=== PATIENT | male | born 1965 | race Hispanic/Latino ===

== ENCOUNTER 2019-01-29 11:18 | Day surgery (SDC) | payer MEDICAID ==
[2019-01-29] MEDS ORDERED: SUBLIMAZE ONE (11:49)
[2019-01-29] MEDS ORDERED: DIPRIVAN 10 MG/ML IV ONE (11:50)
[2019-01-29] MEDS ORDERED: NACL 0.9% 1000 ML 1,000 ML ONE ×2 (12:08→15:00)
[2019-01-29] MEDS ORDERED: NACL BACTERIOSTATIC INFILTRATI ONE (12:09)
--- NOTE | 2019-01-29 12:15 | Anesthesia Consultation ---
Anesthesia Consult and Med Hx Date of service: 01/29/19 - Airway Anesthetic Teeth Evaluation: Good ROM Head & Neck: Adequate Mental/Hyoid Distance: Adequate Mallampati Class: Class II Intubation Access Assessment: Probably Good - Pulmonary Exam CTA: Yes - Cardiac Exam Cardiac Exam: RRR - Pre-Operative Health Status ASA Pre-Surgery Classification: ASA3 Proposed Anesthetic Plan: General - Pulmonary Hx Smoking: Yes (STOPPED X 10 YRS) Hx Sleep Apnea: No ([facility] PRE SCREEN HIGH RISK) - Cardiovascular System Hx Hypertension: Yes (X 10 YRS) - Hematic Hx Anemia: Yes - Other Systems Hx Substance Use: Yes (METH- STOPPED X 1 YR) Hx Cancer: Yes ([place] -2007 , [place] = CHEMO) - Additional Comments Anesthesia Medical History Comments: 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
--- NOTE | 2019-01-29 12:15 | Anesthesia Day of Surgery ---
Anesthesia Day of Surgery - Day of Surgery Patient Examined: Yes Patient H&P Reviewed: Yes Patient is NPO: Yes
--- NOTE | 2019-01-29 12:24 | XRay Report ---
AP ABDOMEN: HISTORY: Kidney stone. There is moderate stool throughout the colon and rectum. The abdominal gas pattern is unremarkable. No masses or organomegaly is identified and there is no gross evidence of free air or fluid. No significant soft tissue calcifications are noted. IMPRESSION: Fecal retention.
[2019-01-29] MEDS ORDERED: PEPCID PO NR (13:00)
[2019-01-29] MEDS ORDERED: VERSED IV NR (13:00)
[2019-01-29] MEDS ORDERED: NACL 0.9% 1000 ML 1,000 ML IV SCH (13:00)
[2019-01-29] MEDS ORDERED: ANCEF/STERILE WATER 2 GM/20 ML IV NR (13:00)
[2019-01-29 13:02] LABS: Hematocrit 33.8 % (35.5-45.6); Hemoglobin 11.7 gm/dl (11.8-15.2); Mean Corpuscular HGB Conc 35 % (32-34); Mean Corpuscular Volume 104 fl (84-94); Platelet Count 144 K/mm3 (140-440); Red Blood Count 3.26 M/mm3 (3.65-5.03); Red Cell Distribution Width 13.7 % (13.2-15.2)
[2019-01-29 13:56] LABS: Platelet Estimate Consistent w Auto; RBC Morphology Normal; Total Cells Counted 100
[2019-01-29] MEDS ORDERED: OMNIPAQUE 300 MG/50 ML (CATH LAB) IV ONE (14:15)
[2019-01-29] MEDS ORDERED: DECADRON ONE (15:00)
[2019-01-29] MEDS ORDERED: ZOFRAN ONE (15:00)
[2019-01-29] MEDS ORDERED: XYLOCAINE MPF 2% ONE (15:00)
[2019-01-29] MEDS ORDERED: LASIX ONE (15:07)
--- NOTE | 2019-01-29 15:08 | Post Operative Note ---
Date of procedure: 01/29/19 Pre-op diagnosis: r ureteral stone Post-op diagnosis: same Findings: as above Procedure: R eswl Anesthesia: VISHAL Surgeon: MADHAVI WONG Estimated blood loss: none Pathology: none Condition: stable Disposition: PACU
--- NOTE | 2019-01-29 15:09 | Discharge Summary ---
Short Stay Discharge Plan Activity: other (no straining ) Weight Bearing Status: Full Weight Bearing Diet: low fat, low cholesterol, low salt Special Instructions: other (inc fluids ) Durable Medical Equipment Needed Upon Discharge: other (give strainer ) Follow up with: DR LUDA [Other] - 7 Days MADHAVI WONG MD [Staff Physician] - 7 Days
--- NOTE | 2019-01-29 15:33 | Operative Report ---
PREOPERATIVE DIAGNOSES: Right upper ureteral stone 6 mm, mild to moderate obstruction. POSTOPERATIVE DIAGNOSES: Right upper ureteral stone 6 mm, mild to moderate obstruction with history of HIV and HIV medications. PROCEDURE: Right in situ lithotripsy with injection of 75-80 mL of IV contrast. SURGEON: Laz Menendez MD ANESTHESIA: General. FINDINGS: This is a gentleman with intermittent pain. He does no longer hurt. CT showed the stone in the upper ureter, right below the UPJ. We could not see well on the cattle dipper film. He now presents for treatment. The plan will be IV dye, possible cystoscopy if needed. DESCRIPTION OF PROCEDURE: The patient was brought to the operating room and placed on the operating table. Following induction of anesthesia, placed over the right kidney and stone was difficult to localize. He was given approximately 75-80 mL of contrast and there was a delayed function on the right side. Within 25-30 minutes, we saw excellent contrast and colonization down to the stone. Once we started shocking from 1 kV, we did a renal pause just because we might have been going across the lower pole. We went to 7 kV and we saw excellent drainage of the system. It looks like it fragmented. The patient understands that he needs close followup. If there is a fragment to gets obstructed, he will need a ureteroscopy, laser as needed or even a percutaneous nephrostomy. The patient tolerated the procedure well and brought to recovery in stable condition. JOB# [id number] MARIA E/EDDIE
[2019-01-29 15:58] VITALS: BP 114/59
--- NOTE | 2019-01-30 08:43 | Post Anesthesia Evaluation ---
- Post Anesthesia Evaluation Patient Participated: Yes Airway Patent: Yes Stable Respiratory Function: Yes Nausea/Vomiting: No Temp > 96.8F: Yes Pain Manageable: Yes Adequeate Hydration: Yes Anesthesia Complications: No Block Receding Appropriately: Not Applicable Patient on Ventilator: No
== END 2019-01-29 16:40 | disposition home or self-care (01) ==
LOC: OR 11:18
PROVIDERS: ATTEND Urology
DX: N20.1 Calculus of ureter (principal); N13.5 Crossing vessel and stricture of ureter without hydronephrosis; I10 Essential (primary) hypertension; F32.9 Major depressive disorder, single episode, unspecified; F41.9 Anxiety disorder, unspecified; Z85.89 Personal history of malignant neoplasm of other organs and systems; Z98.890 Other specified postprocedural states; Z87.440 Personal history of urinary (tract) infections; Z79.899 Other long term (current) drug therapy; Z88.2 Allergy status to sulfonamides; Z87.891 Personal history of nicotine dependence; Z86.2 Personal history of diseases of the blood and blood-forming organs and certain disorders involving the immune mechanism
CPT/HCPCS: 36415; 50590; 74018; 85007; 85025; J0690; J1940; J2250; J2405; J2704; J3010; J7030; Q9967; J1100